=== PATIENT | male | born 1940 | race Caucasian/White ===

== ENCOUNTER 2019-09-01 08:42 | Inpatient (IN) ==
--- NOTE | 2019-09-01 09:54 | Diag Imaging Result Doc PS360 ---
EXAM: CHEST-PORTABLE 09/01/2019 HISTORY: weakness TECHNIQUE: AP portable at 0948 COMMENT: There are fibrotic changes in the lung apices particularly on the left. The heart size and pulmonary vascularity are stable in appearance compared to 05/14/2019. Overall there has been no significant change in the appearance the chest. IMPRESSION: Stable chest. Electronically signed by Bandar Mukherjee 09/01/2019 9:51 AM
--- NOTE | 2019-09-01 10:06 | PROVIDER DOCUMENTATION ---
HPI-General Adult - General Chief Complaint: Fall Stated Complaint: FALL Time Seen by Provider: 09/01/19 08:59 Source: patient, family Allergies/Adverse Reactions: Patient Allergies Allergy/AdvReac Type Severity Reaction Status Date / Time Tetanus Vaccines and Toxoid Allergy SWELLING Verified 03/27/19 10:00 [Tetanus Vaccines & Toxoid] Home Medications: Home Medication List Medication Instructions Recorded Confirmed Last Taken Type Albuterol [Albuterol Neb] 2.5 mg INH TID 03/06/14 09/13/17 09/13/17 History Aspirin 81 mg PO DAILY 03/06/14 09/13/17 09/13/17 History Fluticasone/Salmeterol [Advair 1 each IH BID 09/13/17 09/13/17 09/13/17 History 250-50 Diskus] Rosuvastatin Calcium [Crestor] 5 mg PO QHS 09/13/17 09/13/17 1 Day Ago History ~09/12/17 Sennosides/Docusate Sodium 1 each PO DAILY 09/13/17 09/13/17 09/13/17 History [Pericolace] Umeclidinium [place] [Incruse 1 puff PO QAM 09/13/17 09/13/17 09/13/17 History Ellipta] Calcium Carbonate Chew [Tums] 500 mg PO PC + HS PRN PRN #20 09/18/17 Unknown Rx tab.chew Cephalexin [Keflex] 500 mg PO Q12H #8 cap 09/18/17 Unknown Rx Methylprednisolone [Medrol Dosepak] 4 mg PO DIRECTED #1 pkg 09/18/17 Unknown Rx Multivitamin/Iron/Folic Acid 1 ea PO DAILY #100 tab 09/18/17 Unknown Rx [Centrum Adults Tablet] Famotidine [Pepcid] 20 mg PO BID #10 tab 01/24/19 Unknown Rx Prednisone 20 mg PO BID #10 tab 01/24/19 Unknown Rx Hydrocodone/APAP 5 mg/325 mg 1 ea PO Q6H PRN PRN #9 tab 03/27/19 Unknown Rx [[place]-5] - History of Present Illness -Gen Adult Nature of Presenting Problems: [id number] presents to the ER accompanied by his with c/o a fall this morning with slow coordination, inability to form words, and confusion. The patient states he just kind of "slumped to the ground and couldn't get his mouth or hands to move right" He remembers everything but nothing would come out right. The states he was very confused after the event. Upon arrival to the ER the patient reports his feels "just fine now. Like it never happened." Both report he has never had an event such as this before. He reports he has a hx of hyperlipidemia and COPD. No known history of CVA, TIA, CAD, or HTN noted. 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) Timing: reports: gone now Review of Systems - Adult - REVIEW OF SYSTEMS - ADULT Constitutional: reports: see HPI Eyes: reports: no symptoms reported Ears, Nose, Mouth & Throat: reports: no symptoms reported Cardiovascular: reports: no symptoms reported Respiratory: reports: no symptoms reported Gastrointestinal: reports: no symptoms reported Genitourinary: reports: no symptoms reported Musculoskeletal: reports: no symptoms reported Integumentary: reports: no symptoms reported Neurological: reports: see HPI, loss of balance, slurred speech, other (loss of coordination) Psychiatric: reports: no symptoms reported Endocrine: reports: no symptoms reported Hematologic/Lymphatic: reports: no symptoms reported Allergic/Immunologic: reports: no symptoms reported All Other Systems: Reviewed and Negative Past History - Adult - PAST MEDICAL HISTORY-ADULT Review of Records: reports: Old Records Reviewed, Nursing Assessment Review, Medications Reviewed, Social history reviewed & non-contributory. Major Childhood Illnesses: reports: denies history Cardiovascular: reports: hyperlipidemia Respiratory: reports: bronchitis, COPD, pneumonia Gastrointestinal: reports: denies history Obstetrical/Gynecological: reports: denies history Genitourinary: reports: denies history Musculoskeletal: reports: denies history Neurological: reports: denies history Endocrine/Immune: reports: denies history Other Conditions: reports: denies history - PRIOR SURGERIES/PROCEDURES Surgical/Procedure History: reports: reviewed, not pertinent - IMMUNIZATION STATUS Childhood Immunizations: UTD Flu Vaccine: UTD - FAMILY HISTORY Family History: reviewed, not pertinent - SOCIAL HISTORY Smoking: denies Substance Use: denies Living Situation: family Physical Exam-General - PHYSICAL EXAM-ADULT Initial Vital Signs Reviewed: Yes - CONSTITUTIONAL General Appearance: appears well, alert, no apparent distress - EYES Eyes: PERRL/EOMI, pink conjunctivae - HEAD, EARS, NOSE, MOUTH & THROAT HENMT: normocephalic/atraumatic, moist mucous membranes, normal ENT inspection, TMs normal, pharynx normal - NECK Neck: non-tender, full range of motion, supple, normal inspection - RESPIRATORY Respiratory: chest non-tender, lungs clear, normal breath sounds - CARDIOVASCULAR Cardiovascular: normal peripheral pulses, regular rate, rhythm, no edema, no gallop, no JVD - GASTROINTESTINAL (ABDOMEN) Abdominal Exam: non tender, soft - MUSCULOSKELETAL Extremity: normal range of motion, non-tender, normal gait Peripheral Pulses: radial (R): 2+, radial (L): 2+ - SKIN Integumentary: normal color, warm/dry - NEUROLOGIC Neurologic: grossly normal. negative: facial droop, focal weakness, motor weakness, sensory deficit - PSYCHIATRIC Psych/Mental Status: normal mood/affect, oriented x 3 Progress - PLAN OF CARE/RESULTS Progress/Plan/Lab Results: Vital Signs - 8 hr 09/01/19 08:46 Temperature 98.3 F Pulse Rate 113 H Respiratory Rate 16 Blood Pressure 173/86 O2 Sat by Pulse Oximetry 97 Orders Category Date Time Status Cardiac Monitoring DIRECTED Care 09/01/19 09:29 Active Finger Stick Blood Sugar (ED) DIRECTED Care 09/01/19 09:29 Active Oxygen Therapy- ED Nursing DIRECTED Care 09/01/19 09:29 Active Saline Loc NOW Care 09/01/19 09:29 Active CHEST-PORTABLE [RAD] Stat Exams 09/01/19 09:[address] HEAD W/O CONTRAST [CT] Stat Exams 09/01/19 09:31 Taken ABG [RESP] Routine Lab 09/01/19 09:29 Ordered ALCOHOL BLOOD Stat Lab 09/01/19 09:29 Uncollected CBC WITH ELECTRONIC DIFF [HEME] Stat Lab 09/01/19 09:29 Uncollected CK PROFILE [SP CHEM] Stat Lab 09/01/19 09:29 Uncollected COMPREHENSIVE METABOLIC PANEL [CHEM] Stat Lab 09/01/19 09:29 Uncollected LACTATE, PLASMA [CHEM] Stat Lab 09/01/19 09:29 Uncollected PROTIME WITH INR [COAG] Stat Lab 09/01/19 09:29 Uncollected PTT [COAG] Stat Lab 09/01/19 09:29 Uncollected TROPONIN T Stat Lab 09/01/19 09:29 Uncollected URINALYSIS [URINALYSIS] Stat Lab 09/01/19 09:29 Uncollected URINE DRUG SCREEN Stat Lab 09/01/19 09:30 Uncollected Altered Mental Status Stat Oth 09/01/19 09:29 Ordered EKG [EKG] Stat Ther 09/01/19 09:29 Ordered patient and verbalize and understanding of POC and agree with treatment rendered here today. Result Diagrams: 09/01/19 10:13 09/01/19 10:13 - REASSESSMENT Reassessment #1 Time Reassessed: 12:10 Status: unchanged - EKG 1 Time of EKG reading by physician:: 09:39 EKG Read and Signed by:: Tyson Patel EKG Interpretation (*Must complete 3 of following elements*): Normal Rate: 88 Rhythm: NSR Coin: normal QRS: normal MD Interval: normal (borderline IVC) ST Wave: normal - XRAY 1 XRAY Study: Chest Impression: See EMR Report ( COMMENT: There are fibrotic changes in the lung apices particularly on the left. The heart size and pulmonary vascularity are stable in appearance compared to 05/14/2019. Overall there has been no significant change in the appearance the chest. IMPRESSION: Stable chest.) - CT/MRI 1 CT Study: Head Impression: See EMR Report ( COMMENT: There is no evidence of mass effect, bleed, or abnormal extra-axial fluid collection. Compared to 09/13/2017 there has been no significant change in the appearance of the brain. There is some fluid in the mastoid air cells on the right, otherwise the visualized paranasal sinuses are clear. The calvarium is intact. Compared to 09/13/2017, the right mastoid effusion is worse. The ethmoid sinusitis which was present previously has largely resolved however. IMPRESSION: No evidence of acute intracranial disease. Right mastoid effusion.) - CONSULTS/PCP/HOSPITALIST Notification #1 *Consult/PCP/Hospitalist*: WILLIS Zaragoza Time Discussed: 12:10 Reason/Comments: Possible TIA Consult Disposition: Admit Departure - Departure Date of Disposition Decision: 09/01/19 Time of Disposition Decision: 12:10 DIAGNOSIS: Transient ischemic attack (TIA) Hypertension Qualifiers: Hypertension type: unspecified Qualified Code(s): I10 - Essential (primary) hypertension Disposition: ADMITTED INPATIENT 09 Certified Medical Emergency: Emergent Condition: Critical Referrals and Follow-Ups: Matthew Ford, [Primary Care Provider] - - Critical Care Note This patient required my direct & personal management of CC.: No Attestation - Physician/ BUDDY Attestation Patient care was provided by Advanced Practice Provider:: Yes Advanced Practice Provider:: Jose Cherry Advanced Practice Provider documentation review:: The Mid-level provider documentation, treatment plan and medical decision making was reviewed by the physician who agrees with all treatment and medical decision making by the MLP. The physician spent face to face time with patient:: No Advanced Practice Provider documentation review:: Supervising physician onsite and consulted in the evaluation and care of this patient. The physician did not have a face to face encounter with the patient.
--- NOTE | 2019-09-01 10:06 | Diag Imaging Result Doc PS360 ---
EXAM: CT HEAD W/O CONTRAST 09/01/2019 HISTORY: Head injury TECHNIQUE: This exam was performed using automated exposure control, adjustment of mA or kV according to patient size, and/or use of iterative reconstruction technique. COMMENT: There is no evidence of mass effect, bleed, or abnormal extra-axial fluid collection. Compared to 09/13/2017 there has been no significant change in the appearance of the brain. There is some fluid in the mastoid air cells on the right, otherwise the visualized paranasal sinuses are clear. The calvarium is intact. Compared to 09/13/2017, the right mastoid effusion is worse. The ethmoid sinusitis which was present previously has largely resolved however. IMPRESSION: No evidence of acute intracranial disease. Right mastoid effusion. Electronically signed by Bandar Mukherjee 09/01/2019 10:03 AM
[2019-09-01 10:44] LABS: BASO# 0.03 X1000 (0.0-0.2); BASO% 0.5 % (0.0-0.8); EOS# 0.18 X1000 (0.0-0.7); EOS% 2.8 % (0.0-10.0); HEMATOCRIT 44.5 % (42.0-52.0); HEMOGLOBIN 13.8 g/dL (14.0-18.0); LYMPH# 0.83 X1000 (1.2-3.4); LYMPH% 13.1 % (20.5-51.1); MCH 28.7 PG (27-31); MCV 92.5 FL (81-99); MONO# 0.52 X1000 (0.11-0.59); MONO% 8.2 % (1.7-9.3); MPV 10.4 FL (7.4-10.4); NEUT% 75.4 % (42.2-75.2); PLT 231 X1000 (130-400); RBC 4.81 XMIL (4.7-6.1); RDW 13.4 % (11.5-14.5); WBC 6.36 X1000 (4.8-10.8)
[2019-09-01 10:44] LABS: ALLEN TEST YES; BE 5.4 mmoll (-3.0-3.0); BLOOD TYPE ARTERIAL; O2(CT) 17.9 mL/dL (15.0-23.0); O2HB 93.8 % (95.0-99.0); PCO2(98.6) 42 mmHg (35-45); PO2(98.6) 65 mmHg (60-100); SAMPLE BLOOD; SAO2 96.7 % (95.0-100.0); THB 13.6 g/dL (11.5-17.4); pH(98.6) 7.46 (7.35-7.45)
[2019-09-01 10:45] LABS: MODALITY ROOM AIR
[2019-09-01 11:03] LABS: INR 0.97; PTT 27.1 Seconds (22.3-41.8)
[2019-09-01 11:15] LABS: AGAP 15; ALB/GLOB RATIO 1.4; ALKALINE PHOSPHATASE 144 U/L (32-122); BUN 13 mg/dL (8-22); CALCIUM 9.2 mg/dL (8.8-10.2); CHLORIDE 104 mmol/L (98-107); CK PROFILE 44 U/L (24-204); COSMO 290; CREATININE 0.8 mg/dL (0.7-1.2); GLUCOSE 88 mg/dL (70-104); GOT 35 U/L (10-34); GPT 34 U/L (10-44); POTASSIUM 4.9 mmol/L (3.5-5.1); SODIUM 146 mmol/L (136-145); TCO2 27 mmol/L (25-35); TOTAL BILIRUBIN 0.37 mg/dL (0.20-1.00); TOTAL PROTEIN 6.8 g/dL (6.3-8.3)
[2019-09-01 11:21] LABS: URINE SOURCE VOIDED
[2019-09-01 11:38] LABS: BILIRUBIN URINE NEGATIVE (NEGATIVE); BLOOD URINE NEGATIVE (NEGATIVE); COLOR YELLOW; GLUCOSE URINE NEGATIVE (NEGATIVE); KETONE URINE NEGATIVE (NEGATIVE); LEUKOCYTES URINE NEGATIVE (NEGATIVE); NITRITE URINE NEGATIVE (NEGATIVE); PROTEIN URINE TRACE mg/dL (NEGATIVE); SP GRAVITY URINE 1.021; TURBIDITY URINE CLEAR (CLEAR); UROBILINOGEN URINE 2 mg/dL (NORMAL)
[2019-09-01 11:40] LABS: UR EPITHELIAL CELLS <10 /HPF (<10); URINE BACTERIA NEGATIVE /HPF; URINE RBC <10 /HPF (<10); URINE WBC <10 /HPF (<10)
[2019-09-01 11:46] LABS: UR AMPHETAMINES QUAL NONE DETECTED (NONE DETECT); UR BARBITUATES QUAL NONE DETECTED (NONE DETECT); UR BENZODIAZEPIN QUAL NONE DETECTED (NONE DETECT); UR CANNABINOIDS QUAL NONE DETECTED (NONE DETECT); UR COCAINE QUAL NONE DETECTED (NONE DETECT); UR METHADONE QUAL NONE DETECTED (NONE DETECT); UR OPIATES QUAL NONE DETECTED (NONE DETECT); UR OXYCODONE QUAL NONE DETECTED (NONE DETECT); UR PCP QUAL NONE DETECTED (NONE DETECT)
[2019-09-01] MEDS ORDERED: ZOFRAN IV PRN (12:29)
[2019-09-01] MEDS ORDERED: TYLENOL PO PRN (12:29)
[2019-09-01] MEDS: NS 1,000 ML IV SCH (13:32)
--- NOTE | 2019-09-01 13:48 | HISTORY AND PHYSICAL ---
Mr. Santiago said he slid to the floor about 6:45 this morning. One side was not working very well. He denies headache or dizziness or any injury. Apparently, there were some trouble with his speech as well. This seemed to resolve by the time he came to the emergency room. He denies chest pain or tachy palpitations, and denied any fever, chills, or productive cough. This is an 79-year-old male with a history of COPD. Currently on oxygen therapy at night. Uses nasal cannula 2 L. He was here on 09/13/2017 with shortness of breath. At that time, had to help him go from the chair to the living room and the kitchen. He was very weak and slid out of the chair and onto the floor. PAST MEDICAL HISTORY: 1. COPD, on home oxygen at 2 L as needed. 2. Coronary artery disease, status post coronary stent placement x2. 3. Previous history of hypertension. He is not taking blood pressure medications, I think for a couple years. 4. Hyperlipidemia. 5. Benign prostatic hypertrophy. PAST SURGICAL HISTORY: 1. Appendectomy. 2. Status post TURP, suprapubic catheter placement which has since been removed. 3. Coronary stent placement x2. 4. Surgery for prolapsed hemorrhoid. 5. Colon polyp removed. 6. Inguinal hernia repair. 7. Bilateral cataract surgery. SOCIAL HISTORY: Patient is a former smoker. He did smoke 1 pack per day for approximately 50 years. Denies any alcohol or illicit drugs. FAMILY HISTORY: Positive for mother having history of heart disease and diabetes mellitus. Father had a history of heart disease as well. He has 11 siblings. A strong history of heart disease. One of his brothers has from myocardial infarction. ALLERGIES: Patient reports allergies to tetanus vaccine and toxoid. MEDICATIONS: Review his list of medications. REVIEW OF SYSTEMS: He was unable to give a full review of systems but I did question him and no history of weight gain or loss. No fever or chills. HEENT: No change in his vision or hearing acuity that he is aware of. No trauma to his head. On his fall, he slid down and does not remember much about the fall. Just kind of woke up on the floor so not sure if it was a true syncopal episode. Respiratory: No increased work of breathing or dyspnea. He does have underlying COPD, on oxygen. Cardiovascular: No complaints of chest pain or pleuritic pain or palpitations or tachy palpitations. Musculoskeletal/Neurologic: No complaints of change in his bowels or bladder activity. No gross hematuria or dysuria. Musculoskeletal/Neurologic: This morning, apparently he was one side. He does not remember which side but he just felt like he was generally weak, is what he reported, especially his hands and legs. Skin: No rashes. PHYSICAL EXAMINATION: GENERAL: In the emergency room, awake and alert, oriented x3. HEENT: Pupils were equal and round. VITAL SIGNS: Temperature 98.3 degrees, pulse 113, respirations 16, blood pressure 173/86. They took blood pressures sitting down. His pulse was 91, blood pressure 154/76. Standing, pulse was 95, blood pressure 149/73. Supine, pulse was 85, blood pressure 166/82. LUNGS: Clear in all lung santiago. CARDIOVASCULAR EXAMINATION: Regular rhythm and rate without murmur or S3. ABDOMEN: Soft, nondistended. VASCULAR: Carotid, radial, and femoral pulses and pedal pulses 2+ and symmetrical. SKIN: Warm and dry. No sign of rash. No pedal edema. NECK: Supple without thyromegaly or adenopathy. LABORATORY DATA: White count 6360, hematocrit 44, platelet count 231,000. Sodium 146, potassium 4.9, chloride 104, BUN 13, creatinine 0.8, calcium 9.2. AST 35, ALT is 34. Troponin less than 0.01. Alkaline phosphatase 144, albumin was 4.0. Prothrombin time is 13, INR 0.97, PTT is 27. Urine drug screen was negative for opiates, oxycodone, methadone, barbiturates, phencyclidine, amphetamines, benzodiazepines, urine cocaine screen, and cannabinoids. Urinalysis unremarkable. Blood gases, pH is 7.46, pCO2 is 42, PO2 is 65, O2 saturation was 93%. Chest x-ray, stable chest. There were fibrotic changes in the lung apices, particularly on the left. The heart size and pulmonary vascularity were stable as compared to 05/14/2019. Overall, there has been no significant change. No sign of infiltrate. CT of his head without contrast, no evidence of acute intracranial disease. There is some right mastoid effusion but no tenderness around the mastoid on exam. MEDICATIONS: At home, he takes albuterol 2.5 mg t.i.d., aspirin 81 mg a day, Tums after meals and at bedtime as needed. He was on Keflex 500 mg, I think had 8 tablets left. Pepcid 20 mg b.i.d., fluticasone salmeterol which is Advair 250/50 one puff b.i.d., hydrocodone 5 mg q.6 hours p.r.n. He was on a Medrol Dosepak, multivitamin, prednisone 20 mg b.i.d., Crestor 5 mg at bedtime, sennosides docusate which is Kylie-Colace 1 a day, and he was taking Incruse Ellipta which is umeclidinium bromide 1 puff q.a.m. ASSESSMENT AND PLAN: 1. He had possibly a syncope or presyncopal event. I suspect blood pressure dropped and he got weak. I have to talk to family. Apparently, one side was weak and he was having trouble with his speech. This seems to have resolved. Looking back on records, I think we ought to get an echocardiogram and look at his carotid vessels, and follow his blood pressure closely. 2. Chronic obstructive pulmonary disease with chronic hypoxemia. He is on oxygen. Continue his oxygen. We will give him some DuoNebs. He is on a steroid and a long-acting beta agonist inhaler. 3. He is also on prednisone. Probably ought to check a morning cortisol and just see if there is any course on his deficiency. I do not see any evidence of infection and his blood pressure seems to be stable at this point. cc: Corey Ba MD
--- NOTE | 2019-09-01 17:38 | EKG Report ---
Test Performed on : 09/01/2019 09:39:38 AM Test Reason : weakness Blood Pressure : / mmHG Vent. Rate : 088 BPM Atrial Rate : 088 BPM P-R Int : 174 ms QRS Dur : 120 ms QT Int : 386 ms P-R-T Axes : 084 082 073 degrees QTc Int : 467 ms Normal sinus rhythm. Nonspecific intraventricular conduction delay Borderline ECG When compared with ECG of 24-JAN-2019 08:24, No significant change was found Unconfirmed Result
[2019-09-01] MEDS: CRESTOR PO SCH (23:11)
[2019-09-01] MEDS: ALBUTEROL NEB INH SCH (23:30)
[2019-09-01] MEDS: ADVAIR 250/50 DISKUS INH SCH (23:30)
[2019-09-02] MEDS: NS 1,000 ML IV SCH ×2 (02:25→18:30)
[2019-09-02 06:21] LABS: BASO# 0.02 X1000 (0.0-0.2); BASO% 0.2 % (0.0-0.8); EOS# 0.13 X1000 (0.0-0.7); EOS% 1.6 % (0.0-10.0); HEMOGLOBIN 13.3 g/dL (14.0-18.0); IMM GRAN# 0.02 X1000 (0.0-0.04); IMM GRAN% 0.2 % (0.0-0.5); LYMPH# 0.81 X1000 (1.2-3.4); LYMPH% 10.1 % (20.5-51.1); MCH 28.5 PG (27-31); MCHC 30.9 g/dL (33-37); MCV 92.3 FL (81-99); MONO# 0.53 X1000 (0.11-0.59); MONO% 6.6 % (1.7-9.3); MPV 10.6 FL (7.4-10.4); NEUT# 6.53 X1000 (1.4-6.5); NEUT% 81.3 % (42.2-75.2); PLT 203 X1000 (130-400); RBC 4.66 XMIL (4.7-6.1); RDW 13.1 % (11.5-14.5); WBC 8.04 X1000 (4.8-10.8)
[2019-09-02 06:35] LABS: HEMOGLOBIN A1C 5.4 % (4.8-6.0)
[2019-09-02 06:45] LABS: AGAP 11; ALB/GLOB RATIO 1.1; ALBUMIN 3.9 g/dL (3.5-5.0); ALKALINE PHOSPHATASE 150 U/L (32-122); BUN 11 mg/dL (8-22); CALCIUM 8.5 mg/dL (8.8-10.2); CHLORIDE 101 mmol/L (98-107); CHOLESTEROL 136 mg/dL (0-200); COSMO 281; CREATININE 0.7 mg/dL (0.7-1.2); ESTIMATED GFR > 60; GLUCOSE 99 mg/dL (70-104); GOT 38 U/L (10-34); GPT 38 U/L (10-44); HDL 45 mg/dL (35-55); LDL 75 mg/dL; POTASSIUM 3.8 mmol/L (3.5-5.1); SODIUM 141 mmol/L (136-145); TCO2 29 mmol/L (25-35); TOTAL BILIRUBIN 0.49 mg/dL (0.20-1.00); TOTAL PROTEIN 7.3 g/dL (6.3-8.3); TRIGLYCERIDES 78 mg/dL (39-160); VLDL 16 mg/dL
[2019-09-02 07:31] LABS: FREE T4 1.22 ng/dL (0.93-1.70); TSH 1.97 uIUmL (0.27-4.20)
[2019-09-02] MEDS: ALBUTEROL NEB INH SCH ×2 (07:45→14:38)
[2019-09-02] MEDS: INCRUSE ELLIPTA INH SCH (07:45)
[2019-09-02] MEDS: ADVAIR 250/50 DISKUS INH SCH ×3 (07:46→19:36)
--- NOTE | 2019-09-02 09:21 | Diag Imaging Result Doc PS360 ---
EXAM: MRI BRAIN W/WO CONTRAST INDICATION: stroke COMPARISON: CT head dated 09/01/2019. No prior MRI brain is available for comparison. FINDINGS: In the medial parietal lobe on the left abutting the falx, there is a mixed echotexture lesion that is hypointense on T1 and mixed hypo and hyperintensity on T2 and FLAIR. It measures 2.7 x 2.1 cm axially. It exhibits no enhancement. There is some restricted diffusion at its periphery. On gradient, there is internal cortical decreased signal suggesting aging blood products. This probably represents an aging subacute infarct with internal petechial hemorrhage. Please correlate with the patient's clinical history. There is suggestion of very mild white matter microangiopathy in the subcortical and periventricular white matter. Aside from the petechial hemorrhage discussed above, no intracranial hemorrhage is appreciated. There is no abnormal intracranial enhancement. There is a right mastoid air cell effusion. Surrounding soft tissues and bony structures are essentially unremarkable, otherwise. IMPRESSION: 1.Mixed signal lesion at the medial left parietal lobe that probably represents an aging subacute focal infarct with associated petechial hemorrhage. Please correlate clinically and see above discussion. 2.Other incidental/nonacute findings detailed above. Electronically signed by Renny Sales 09/02/2019 9:19 AM
--- NOTE | 2019-09-02 09:41 | Diag Imaging Result Doc PS360 ---
EXAM: MRA BRAIN W/O CONTRAST INDICATION: stroke TECHNIQUE: 3-D [id number] axial images and 3-D MIPS of the [place] were obtained. COMPARISON: None. FINDINGS: There is motion artifact, which somewhat obscures the distal branches of the anterior cerebral arteries. The right MIREYA appears somewhat hypoplastic. As imaged, no flow-limiting stenosis, vascular malformation, or cerebral aneurysm is identified involving the arteries comprising the [place] including the anterior, middle, and posterior cerebral arteries. The distal ICAs, basilar artery, and distal vertebral arteries appear to be patent as well. IMPRESSION: Somewhat limited study due to motion artifact. However, no definite flow-limiting stenosis is appreciated as imaged. Electronically signed by Renny Sales 09/02/2019 9:39 AM
[2019-09-02] MEDS: PERICOLACE PO SCH (10:17)
[2019-09-02] MEDS: ASPIRIN PO SCH (10:17)
--- NOTE | 2019-09-02 14:17 | ECHO REPORT ---
ORDER DATE: 09/01/2019 INDICATION: TIA. FINDINGS: 1. The right atrium appears in normal size at 3.4 cm. 2. Mild tricuspid regurgitation. Insufficient data to estimate RV systolic pressure. 3. Somewhat poor visualization of the right ventricle, but likely normal size and systolic function. 4. There is moderate pulmonic insufficiency that appears to have multiple jets. 5. Mild left atrial enlargement at 4 cm. 6. No mitral valve prolapse. Mild mitral regurgitation. 7. The left ventricle appears enlarged with an end-diastolic dimension of 5.9 cm. Normal wall thicknesses with a posterior and interventricular septal wall thickness of 0.8 cm each. LV systolic function is difficult to estimate. The estimated ejection fraction is 45% with minimal global hypokinesis. 8. The aortic valve is poorly visualized, but there does not appear to be any clear degree of stenosis or insufficiency. 9. The aorta appears normal on visualized segments. 10. No pericardial effusion seen. 11. The IVC appears to be normal in size with good collapse. cc: MD Mila Azevedo CRNP
[2019-09-02] MEDS ORDERED: DUONEB (A & A) INH PRN (16:30)
--- NOTE | 2019-09-02 18:01 | PROGRESS NOTE ---
DATE: 09/02/2019 SUBJECTIVE: Mr. Santiago has had a good day. He does feel pretty weak, but he has not had any chest pain. No fever or chills. No lateralizing neurologic changes. OBJECTIVE: Vital signs: Temp is 98.3 degrees, pulse 98, respirations 22, blood pressure 146/67. HEENT: Pupils are equal and round. Lungs: Clear in all lung santiago. Cardiovascular: Regular rhythm and rate without murmur or S3. Urine output was over 1000 mL from yesterday. DIAGNOSTIC STUDIES: MRA of the brain: Mixed lesion medial left parietal lobe that probably represents aging, subacute focal infarct associated with petechial hemorrhage and it is in the left parietal lobe, nonspecific. MRA of the brain somewhat limited due to motion artifact. No definite flow-limiting lesion or stenosis. Echocardiogram: Mild tricuspid regurgitation. Left ventricle appears enlarged with end-diastolic dimension of 5.9. Normal wall thickness. Ejection fraction approximately 45%. Minimal global hypokinesis. No other significant valvular dysfunction. ASSESSMENT AND PLAN: 1. He had what sounds like a presyncopal event. His does not think he passed out. Blood pressure I suspect dropped and may have been vasovagal. I have not found anything on his monitor. No evidence of cardiac ischemia and do not see any neurologic radiographic evidence to be consistent with this. 2. Chronic obstructive pulmonary disease with chronic hypoxemia. Aware. Air and gas exchange look good. 3. He is also on prednisone and we did check cortisol level. Cortisol looked well within normal range, a.m. cortisol. His T4, TSH, B12, and folate looked good. Electrolytes look unremarkable. So we will see how he does with physical therapy. His swallow is good and he is eating; I believe he is eating a healthy heart diet. cc: Corey Ba MD [facility]
[2019-09-02] MEDS: DUONEB (A & A) INH SCH ×2 (19:36→23:30)
[2019-09-02] MEDS: CRESTOR PO SCH (20:42)
[2019-09-03] MEDS: NS 1,000 ML IV SCH (02:25)
[2019-09-03 05:21] LABS: BASO# 0.01 X1000 (0.0-0.2); BASO% 0.1 % (0.0-0.8); EOS% 1.4 % (0.0-10.0); HEMATOCRIT 40.3 % (42.0-52.0); HEMOGLOBIN 12.8 g/dL (14.0-18.0); LYMPH# 1.11 X1000 (1.2-3.4); LYMPH% 15.1 % (20.5-51.1); MCH 29.2 PG (27-31); MCHC 31.8 g/dL (33-37); MONO# 0.79 X1000 (0.11-0.59); MONO% 10.8 % (1.7-9.3); MPV 10.3 FL (7.4-10.4); NEUT# 5.33 X1000 (1.4-6.5); NEUT% 72.6 % (42.2-75.2); PLT 179 X1000 (130-400); RBC 4.38 XMIL (4.7-6.1); RDW 13.3 % (11.5-14.5); WBC 7.34 X1000 (4.8-10.8)
[2019-09-03 05:54] LABS: AGAP 12; ALB/GLOB RATIO 1.1; ALBUMIN 3.5 g/dL (3.5-5.0); ALKALINE PHOSPHATASE 127 U/L (32-122); BUN 10 mg/dL (8-22); CALCIUM 8.5 mg/dL (8.8-10.2); CHLORIDE 101 mmol/L (98-107); COSMO 276; CREATININE 0.7 mg/dL (0.7-1.2); ESTIMATED GFR > 60; GLUCOSE 95 mg/dL (70-104); GOT 28 U/L (10-34); GPT 30 U/L (10-44); SODIUM 139 mmol/L (136-145); TCO2 26 mmol/L (25-35); TOTAL BILIRUBIN 0.55 mg/dL (0.20-1.00); TOTAL PROTEIN 6.6 g/dL (6.3-8.3)
[2019-09-03] MEDS: ASPIRIN PO SCH (08:28)
[2019-09-03] MEDS: PERICOLACE PO SCH (08:28)
[2019-09-03] MEDS: ADVAIR 250/50 DISKUS INH SCH (08:40)
[2019-09-03] MEDS: INCRUSE ELLIPTA INH SCH (08:40)
[2019-09-03] MEDS: DUONEB (A & A) INH SCH (08:40)
[2019-09-03 11:52] VITALS: BP 148/62
--- NOTE | 2019-09-03 13:39 | Carotid Study ---
DATE: 09/01/2019 DATE OF STUDY: 09/02/2019. REQUESTING PROVIDER: WILLIS Duron. COMPETITIVE ATHLETE: Jaleel. INDICATIONS: TIA. EQUIPMENT: [employer] Vivid E9 ultrasound system with a 9 L-D transducer. FINDINGS: Complete diagram of ultrasound images can be seen, and scanned in the patient's medical record. The peak systolic velocity noted on the right side in the mid internal carotid artery, and is noted to be 62. The peak systolic velocity noted on the left side is in the proximal internal carotid artery, and is noted to be 56. Calculated internal common ratio on the right is 0.73 and the left is 0.91. Calculated stenosis bilaterally is 0 to 39 percent. There is some atherosclerosis that at this time does not produce a hemodynamically significant flow-limiting stenosis. Both vertebral arteries were antegrade flow. INTERPRETATION: By strict velocity criteria, no hemodynamically significant flow-limiting stenosis noted. cc: MD Mila Nassar CRNP
--- NOTE | 2019-09-03 13:45 | DISCHARGE SUMMARY ---
ADMISSION DATE: 09/01/2019 DISCHARGE DATE: HISTORY OF PRESENT ILLNESS: He is a patient Dr. Wu Ford. An 79-year-old. One side was not working very well. About 6:45 this morning, he slid to the floor and then felt that one side was not working very well. Had some headache and dizziness. He reports that he felt both his arms were kind of weak. His reported that one side did not seem to be working as well. He denies any fever, chills, chest pain, tachy palpitation, or productive cough. He had this kind of episode a couple years ago. Did not find anything specific at that time. PAST MEDICAL HISTORY: Includes: 1. COPD. He is on home O2 at 2 L. 2. Coronary artery disease, status post stent placement x2. 3. Previous history of hypertension. He was taking blood pressure medicines, I think for a couple years. He has not had any trouble that he knows of low pressure or high pressure in the recent several months. 4. Hyperlipidemia. 5. Benign prostatic hypertrophy. PAST SURGICAL HISTORY: 1. Appendectomy. 2. Status post TURP, suprapubic catheter placement which has since been removed. 3. Coronary stent placement x2. 4. Surgery for prolapsed hemorrhoid. 5. Colon polyp removed. 6. Inguinal hernia repair. 7. Bilateral cataract surgery. ADMISSION DIAGNOSIS: Syncope. The denies he really passed out so it may be presyncope, drop in blood pressure. Suspect it was vasovagal. HOSPITAL COURSE: We had him on a monitor. Did not find any significant arrhythmia. His chest x- ray was stable. No infiltrates. Head CT without contrast, no evidence of acute intracranial disease. He had an MRI and MRA of the brain. 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 MRA was unremarkable as well. It was a somewhat limited study due to motion artifact. He had no further spells. We did an echocardiogram. Echocardiogram shows a left ventricular function with an estimated ejection fraction of about 45%, ventricle appears to be mildly enlarged, end-diastolic dimension of 5.9 cm, normal wall thickness, posterior and intraventricular septal wall thickness of 0.8 cm. Aortic valve, no sign of stenosis or insufficiency. Mitral valve, mild mitral regurgitation. Mild tricuspid regurgitation but really nothing real significant. His carotid velocities were done and do not have report of any significant stenosis. The patient seemed to be doing pretty well, was asking about going home. Plan to discharge him home. I think he is apparently on 4 L of oxygen at home. He is only receiving 2 L here so we will discharge him home on his previous medication. He takes albuterol nebulized inhalation t.i.d., aspirin 81 mg a day, calcium carbonate 500 mg after meals and at bedtime p.r.n., Advair 250/50 one puff b.i.d., multivitamin 1 a day, Crestor 5 mg at bedtime, Kylie- Colace 1 tablet daily, and Incruse Ellipta which is an inhaler 1 puff q.a.m. Looking over his vital signs and blood pressures, they look very stable. No sign of arrhythmia. I suspect he had of a vasovagal event. We will let him go back home. Follow up with his primary, Dr. Ford. Will resume home health as well. cc: Corey Ba MD
== END 2019-09-03 15:30 | disposition home health service (06) | DRG 312 ==
LOC: ED 08:42 → EDIPHOLD 12:36 → 1N 14:38
PROVIDERS: ATTEND Emergency Medicine